=== PATIENT | male | born 1945 | race Caucasian/White ===

== ENCOUNTER 2017-11-15 06:48 | Observation (INO) | payer OTHER ==
[2017-11-15] VITALS (12 sets, daily range): BP systolic 105–1109; BP diastolic 60–75
--- NOTE | ~2017-11-15 | EKG ---
[address] [address] ELECTROCARDIOGRAM REPORT Name: DON PAULLAND Evelio Room #: [facility]#: [id number] Admission: 11/15/17 Attend Phys: Guero Michael MD Discharge: 11/16/17 Date of : 47 Report #: [id number] THIS REPORT FOR: //name// [facility] Test Date: 2017-11-16 Test Time: 09:14:11 Pat Name: CIRO PAUL Department: Room: [facility] Gender: M Director Auto: : 1945 Requested By: Guero Michael Order Number: [id number] MD: Guero Michael Measurements Intervals [place] Rate: 63 P: 50 UT: 209 QRS: -3 QRSD: 97 T: 22 QT: 413 QTc: 423 Interpretive Statements Sinus rhythm Compared to ECG 05/21/2016 06:58:33 No significant changes Electronically Signed On 11-16-2017 16:20:59 ACTUARIAL ASSOCIATE by Guero Michael [email or web address] <ELECTRONICALLY SIGNED> By: Guero Michael MD 11/16/17 1620 3 3 Guero Michael MD /VINNY
--- NOTE | ~2017-11-15 | D ---
[facility] [place] [address] DISCHARGE SUMMARY Name: CIRO PAUL Room #: 207-P [facility] Charles Osborne#: [id number] Admission: 11/15/17 Attend Phys: Guero Michael MD Discharge: 11/16/17 Date of : 47 Report #: [id number] THIS REPORT FOR: //name// CC: Justen Michael DATE OF SERVICE: 11/16/2017 PREOPERATIVE DIAGNOSIS: Atrial fibrillation. POSTOPERATIVE DIAGNOSIS: Atrial fibrillation. PROCEDURES PERFORMED: AFib ablation. HISTORY OF PRESENT ILLNESS: The patient is a 72-year-old status post prior AFib ablation back in 2016, who has been experiencing increased palpitations. He has an implantable loop recorder placed in the past few months and there have been noted increased episodes of atrial fibrillation. As such, I recommended that he undergo repeat ablation. The patient underwent successful repeat ablation. It was noted that the patient's veins were all isolated except the right superior pulmonary vein. This vein was re-isolated successfully. Adenosine was administered and showed persistence of isolation of the vein. There were no other arrhythmias noted. As such, the procedure was concluded. The patient did receive systemic protamine post ablation and this did result in transient hypotension that required some vasopressor medications. This resolved without incident. HOSPITAL COURSE: The patient was monitored overnight and did well. He was noted to have some low sats while sleeping. This morning, he was taken off oxygen, his oxygen saturations were okay, he was walking in the halls without any saturation issues. I performed a chest x-ray, which I visualized and showed no evidence of pulmonary edema, nor any infiltrates. An EKG was also performed showing normal sinus rhythm with no ischemic changes. On telemetry, he remained in sinus rhythm. On physical examination, his heart was regular rate and rhythm with no murmurs, rubs, gallops. His lungs were clear to auscultation bilaterally. His abdomen was soft, nontender. Bilateral groins showed no evidence of bruising or hematoma. He did have some facial swelling and it appears that he must have had an allergic reaction. I think that this is likely due to the protamine. However, he had no other allergic-like symptoms. As such, I recommended that he be discharged home today on his same medications. We will start him on flecainide 100 mg twice a day as well. We will also discharge him on a Medrol Dosepak for the facial swelling. [address] [address] DISCHARGE SUMMARY Name: CIRO PAUL Room #: 207-P [facility]#: [id number] Admission: 11/15/17 Attend Phys: Guero Michael MD Discharge: 11/16/17 Date of : 47 Report #: [id number] Discharge instructions were reviewed and he will follow up with me in 3 months. <ELECTRONICALLY SIGNED> By: Guero Michael MD 12/15/17 1753 1133 1144 Guero Michael MD /nt
--- NOTE | ~2017-11-15 | P ---
[facility] [place] [address] PROCEDURE REPORT Name: CIRO PAUL Room #: 207-P [facility] [place]#: [id number] Admission: 11/15/17 Attend Phys: Guero Michael MD Discharge: 11/16/17 Date of : 47 Report #: [id number] THIS REPORT FOR: //name// CC: Justen Michael DATE OF SERVICE: 11/15/2017 PROCEDURE PERFORMED: 1. Atrial fibrillation ablation, CPT code 28848. 2. 3D mapping, CPT code 59476. 3. Intracardiac echo, CPT code 31907. 4. Program stimulation and pacing after IV, CPT code 59326. HISTORY: The patient is a 72-year-old male with a history of AFib, status post ablation back in 2016, who has had clinical recurrence. This is documented on his implantable loop recorder. He is here for repeat ablation. ANESTHESIA: The patient underwent general anesthesia with no anesthesia-related complications. DESCRIPTION OF PROCEDURE: The patient underwent informed consent. We discussed the details of the procedure including the risks, which include but not limited to bleeding, vascular damage, cardiac perforation, stroke or CA. He understood these risks and is willing to proceed. As such, the patient was brought to the EP Laboratory in a fasting and sedated state and prepped and draped in a sterile fashion. Next, I injected lidocaine to the bilateral femoral regions and obtained access to the bilateral femoral veins x 4. I placed two 8-V[place] Citizen short sheaths in the right femoral vein and a 9-[place] Citizen and 7-[place] Citizen short sheaths in the left femoral vein using the modified Seldinger technique. Next, a decapolar catheter was placed easily in the coronary sinus and an ICE catheter was placed into the right atrium. Intracardiac ultrasound was used to localize the 4 pulmonary veins in the left atrial appendage. On intracardiac ultrasound, he had a nice thin septum. He does have a left superior pulmonary vein with a very high takeoff. He does have a right middle pulmonary vein that comes off the same ostium as the right inferior pulmonary vein. Next, the patient was systemically heparinized and using an SL1 sheath, a transseptal was performed using a EventTool needle. I then placed the Lasso catheter into the left atrium. A detailed 3D geometry of the left atrium was created and there was evidence of isolation of the left superior, left inferior and right inferior pulmonary veins. The right superior pulmonary vein demonstrated that it was reconnected at the superior and posterior aspect of the vessel. The right middle vein also appeared to be isolated. Next, I performed a second transseptal using an SL1 sheath and I was able to cross the original transseptal site using a guidewire and advanced my [address] [address] PROCEDURE REPORT Name: CIRO PAUL Room #: 207-P [facility] Charles Osborne#: [id number] Admission: 11/15/17 Attend Phys: Guero Michael MD Discharge: 11/16/17 Date of : 47 Report #: [id number] sheath into the left atrium. I took a SmartTouch ThermoCool ablation catheter into the left atrium. I then re-isolated the right superior pulmonary vein and this was straightforward. After isolation of the vein, I gave 6 of adenosine and there was a response with transient heart block noted. There was no evidence of reconnection of this pulmonary vein. Next, all veins were re-interrogated and they appeared to all be isolated. I verified that this right middle vein was also isolated. As such, I pulled the transseptal sheaths to the right atrium. Using intracardiac ultrasound, I verified that there was no pericardial effusion. Preablation, the patient was in sinus rhythm with a sinus cycle length of 1180 milliseconds, DC interval 240 milliseconds, QRS duration 97 milliseconds, QT interval 457 milliseconds. Post-ablation, the patient remained in sinus rhythm with sinus cycle length of 1170, DC interval 220, QRS duration 95 milliseconds, and QT interval 465 milliseconds. After conclusion of the procedure, the patient was given some protamine and had a hypotensive response. We therefore used our ultrasound probe in the EP Lab to rule out a pericardial effusion. There was no evidence of pericardial effusion. It appeared that there was a transient hypotensive response related to the protamine and this was discontinued. CONCLUSIONS: 1. Successful re-isolation of the right superior pulmonary vein. 2. Persistent isolation of the other pulmonary veins with evidence of entrance and exit block. <ELECTRONICALLY SIGNED> By: Guero Michael MD 12/15/17 1753 1101 190 Guero Michael MD /nt
[~2017-11-15 06:48] MED LIST: ACID CONTROL20 MG PO; ADVAIR 250-501 EACH INH; ASPIRIN EC81 M1 PO; ATORVASTATIN CA10 MG PO; CALCIUM CIT-VI1 EAC1 PO; FISH OIL 1,0001 EAC5 PO; FLECAINIDE ACET50 M1 PO; FLONASE 0.05%50 MCG NASAL; LIPITOR10 MG PO; MUCINEX600 MG PO; MULTIVITAMINS PO; NASONEX17 GM NS; PRADAXA150 MG PO; PROAIR HFA8.5 GM INH; TOPROL XL50 MG PO; VITAMIN D3400 UNI2 PO
[2017-11-15] MEDS ORDERED: BREO ELLIPTA 11 EACH INH (07:49)
[2017-11-15 07:54] LABS: HEMOGLOBIN 13.6 gm/dL (14.0-18.0); MCH 31.9 pg (26.0-34.0); PLATELET COUNT 168 thou/uL (150-400); RBC 4.26 mil/uL (4.50-6.00); RDW 13.1 % (10.5-14.5)
[2017-11-15 08:11] LABS: APTT 35.5 Seconds (24.5-32.8); INR 1.1; PROTIME 10.9 Seconds (9.3-11.4)
[2017-11-15 08:18] LABS: CREATININE 1.1 mg/dL (0.7-1.3); POTASSIUM 4.4 mmol/L (3.5-5.1)
[2017-11-15 08:35] LABS: ABSOLUTE NEUTROPHILS 2.6 thou/uL (1.4-8.2); ATYPICAL LYMPHS 1 %
[2017-11-15 08:36] LABS: ANISOCYTOSIS SLIGHT
[2017-11-16] VITALS (7 sets, daily range): BP systolic 103–137; BP diastolic 60–70
[2017-11-16] MEDS ORDERED: TAMBOCOR 100 M100 M1 PO (11:18)
== END 2017-11-16 13:06 | disposition home or self-care (01) ==
LOC: CATH 06:48 → 2N 12:55 → CATH 14:23 → 2N 11-16 13:06
PROVIDERS: Internal Medicine Cardiovascular Disease
DX: I48.0 Paroxysmal atrial fibrillation (principal); Z86.79 Personal history of other diseases of the circulatory system
CPT/HCPCS: 62110; 62900; 65020; 65040; 70005

== ENCOUNTER 2020-03-19 15:23 | Emergency (ER) | payer OTHER ==
[~2020-03-19] VITALS: Ht 180.3 cm; Wt 84.8 kg
[~2020-03-19 15:23] MED LIST changes: +BREO ELLIPTA 11 EACH INH; +TAMBOCOR 100 M100 M1 PO
[2020-03-19] MEDS ORDERED: ASA81BEC PO (15:35)
[2020-03-19 16:14] LABS: HEMATOCRIT 38.4 % (42.0-52.0); HEMOGLOBIN 13.4 gm/dL (14.0-18.0); MCH 32.8 pg (26.0-34.0); MCV 93.6 fL (80.0-100.0); PLATELET COUNT 186 thou/uL (150-400); RDW 13.6 % (10.5-14.5); WBC 7.8 thou/uL (4.0-11.0)
[2020-03-19 16:23] LABS: CALCIUM 8.8 mg/dL (8.5-10.1); CREATININE 1.1 mg/dL (0.7-1.3); POTASSIUM 3.9 mmol/L (3.5-5.1)
[2020-03-19 16:43] LABS: ABSOLUTE NEUTROPHILS 6.3 thou/uL (1.4-8.2); PLATELET ESTIMATE NORMAL
[2020-03-19 16:58] LABS: URINE BILIRUBIN NEGATIVE (Negative); URINE BLOOD 1+ (Negative); URINE CLARITY CLEAR; URINE COLOR YELLOW; URINE GLUCOSE-RANDOM* NEGATIVE (Negative); URINE KETONES NEGATIVE (Negative); URINE LEUKOCYTES-REFLEX NEGATIVE (Negative); URINE NITRITE-REFLEX NEGATIVE (Negative); URINE PROTEIN (DIPSTICK) TRACE (Negative); URINE SPECIFIC GRAVITY <= 1.005 (1.005-1.035); URINE UROBILINOGEN 0.2 E.U./dl (0.2-1.0)
[2020-03-19 17:05] LABS: CASTS None Seen /LPF (None Seen); SQUAMOUS None Seen /LPF (0-3); URINE RBC 0-2 Rare /HPF (0-2); URINE WBC-REFLEX None Seen /HPF (0-5)
[2020-03-19 17:06] LABS: BACTERIA-REFLEX 1-9 Few /HPF (None Seen); CRYSTALS None Seen /LPF (None Seen)
[2020-03-19] MEDS ORDERED: AMOXICILLIN 50500 MG PO (17:07)
[2020-03-19] MEDS ORDERED: ALBUTEROL2.5 MG/31 INH (17:18)
[2020-03-19 17:26] VITALS: BP 121/65
--- NOTE | 2020-03-21 11:45 | EKG ---
[facility] [place] [address] ELECTROCARDIOGRAM REPORT Name: CIRO PAUL Room #: DEP [facility]#: [id number] Admission: 03/19/20 Attend Phys: Discharge: 03/19/20 Date of : 47 Report #: [id number] THIS REPORT FOR: cc: Justen Lemus MD, Christopher B. MD Couchonnal, Luis F. MD ~ THIS REPORT FOR: //name// [facility] ED Test Date: 2020-03-19 Test Time: 15:54:38 Pat Name: CIRO PAUL Department: Room: Gender: Cook [place]: : 1945 Requested By: Basil Fair Order Number: [id number] MD: Guero Michael Measurements Intervals [place] Rate: 71 P: 59 [place]: 189 QRS: -16 QRSD: 94 T: 27 QT: 369 QTc: 401 Interpretive Statements Sinus rhythm Borderline left axis deviation Compared to ECG 11/16/2017 09:14:11 No significant changes Electronically Signed On 03-21-2020 11:44:51 CDT by Guero Michael [email or web address] <ELECTRONICALLY SIGNED> By: Guero Michael MD 03/21/20 1144 1554 1554 Guero Michael MD /EPI
== END 2020-03-19 17:13 | disposition home or self-care (01) ==
LOC: ER 15:23
PROVIDERS: Emergency Medicine
DX: J18.1 Lobar pneumonia, unspecified organism (principal); I48.91 Unspecified atrial fibrillation; Z88.1 Allergy status to other antibiotic agents; Z91.018 Allergy to other foods; Z79.82 Long term (current) use of aspirin; Z79.899 Other long term (current) drug therapy

== ENCOUNTER 2020-03-21 11:50 | Inpatient (IN) | payer OTHER ==
[2020-03-21] VITALS (9 sets, daily range): BP systolic 88–126; BP diastolic 57–63
[~2020-03-21] VITALS: Ht 180.3 cm; Wt 83.9 kg
[~2020-03-21 11:50] MED LIST changes: +ALBUTEROL2.5 MG/31 INH; +AMOXICILLIN 50500 MG PO; +ASA81BEC PO
[2020-03-21 12:55] LABS: HEMATOCRIT 37.3 % (42.0-52.0); HEMOGLOBIN 12.8 gm/dL (14.0-18.0); MCH 32.5 pg (26.0-34.0); MCHC 34.4 g/dL (28.0-37.0); MCV 94.3 fL (80.0-100.0); PLATELET COUNT 241 thou/uL (150-400); RBC 3.95 mil/uL (4.50-6.00); RDW 14.1 % (10.5-14.5); WBC 9.9 thou/uL (4.0-11.0)
[2020-03-21 12:57] LABS: CALCIUM 8.6 mg/dL (8.5-10.1); CREATININE 1.2 mg/dL (0.7-1.3); POTASSIUM 3.9 mmol/L (3.5-5.1)
[2020-03-21 13:03] LABS: ALBUMIN 2.5 g/dL (3.4-5.0); TOTAL BILIRUBIN 0.6 mg/dL (0.2-1.0); TOTAL PROTEIN 6.4 g/dL (6.4-8.2)
[2020-03-21 13:09] LABS: ABSOLUTE NEUTROPHILS 7.6 thou/uL (1.4-8.2); ATYPICAL LYMPHS 2 %
[2020-03-22] VITALS (13 sets, daily range): BP systolic 90–145; BP diastolic 42–80
[2020-03-22 05:10] LABS: HEMATOCRIT 35.2 % (42.0-52.0); HEMOGLOBIN 11.8 gm/dL (14.0-18.0); MCH 32.3 pg (26.0-34.0); MCHC 33.6 g/dL (28.0-37.0); RBC 3.67 mil/uL (4.50-6.00); RDW 14.4 % (10.5-14.5); WBC 6.7 thou/uL (4.0-11.0)
[2020-03-22 05:41] LABS: CALCIUM 8.4 mg/dL (8.5-10.1); CREATININE 1.2 mg/dL (0.7-1.3)
--- NOTE | 2020-03-22 11:01 | EKG ---
[facility] [place] [address] ELECTROCARDIOGRAM REPORT Name: CIRO PAUL Room #: 239-P ADM IN M.R.#: [id number] Admission: 03/21/20 Attend Phys: Travon Galarza MD Discharge: Date of : 47 Report #: [id number] THIS REPORT FOR: cc: Justen Lemus MD, Christopher B. MD Couchonnal, Luis F. 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
--- NOTE | 2020-03-22 11:04 | EKG ---
[facility] [place] [address] ELECTROCARDIOGRAM REPORT Name: CIRO PAUL Room #: 239-P ADM IN M.R.#: [id number] Admission: 03/21/20 Attend Phys: Travon Galarza MD Discharge: Date of : 47 Report #: [id number] THIS REPORT FOR: cc: Justen Lemus MD, Christopher B. MD Couchonnal, Luis F. MD ~ THIS REPORT FOR: //name// [facility] Test Date: 2020-03-22 Test Time: 08:10:41 Pat Name: CIRO PAUL Department: Room: 239 P Gender: M [facility] 1945 Requested By: Travon Galarza Order Number: [id number] MD: Guero Michael Measurements Intervals [place] Rate: 64 P: 39 [place]: 206 QRS: -1 QRSD: 94 T: 6 QT: 361 QTc: 373 Interpretive Statements Sinus rhythm Ventricular premature complex Compared to ECG 03/19/2020 15:54:38 Ventricular premature complex(es) now present Electronically Signed On 03-22-2020 11:03:23 CDT by Guero Michael [email or web address] <ELECTRONICALLY SIGNED> By: Guero Michael MD 03/22/20 1103 Guero Michael MD /EPI
[2020-03-23 04:45] VITALS: BP 127/70
[2020-03-23 04:50] LABS: HEMATOCRIT 33.4 % (42.0-52.0); HEMOGLOBIN 11.5 gm/dL (14.0-18.0); MCH 32.6 pg (26.0-34.0); MCHC 34.3 g/dL (28.0-37.0); MCV 94.9 fL (80.0-100.0); RBC 3.52 mil/uL (4.50-6.00); RDW 14.4 % (10.5-14.5); WBC 7.2 thou/uL (4.0-11.0)
[2020-03-23 05:28] LABS: CALCIUM 8.1 mg/dL (8.5-10.1)
[2020-03-23 05:32] LABS: POTASSIUM 3.9 mmol/L (3.5-5.1)
[2020-03-23 09:00] VITALS: BP 124/75
[2020-03-23 12:00] VITALS: BP 116/63
[2020-03-23 17:00] VITALS: BP 132/71
[2020-03-24 05:41] LABS: CALCIUM 8.4 mg/dL (8.5-10.1); POTASSIUM 3.8 mmol/L (3.5-5.1)
[2020-03-24 05:48] VITALS: BP 144/76
[2020-03-24 05:48] LABS: HEMATOCRIT 33.8 % (42.0-52.0); HEMOGLOBIN 11.5 gm/dL (14.0-18.0); MCH 32.7 pg (26.0-34.0); MCHC 34.2 g/dL (28.0-37.0); MCV 95.8 fL (80.0-100.0); RBC 3.52 mil/uL (4.50-6.00); RDW 14.3 % (10.5-14.5); WBC 5.6 thou/uL (4.0-11.0)
[2020-03-24 06:59] VITALS: BP 148/67
[2020-03-24 08:30] VITALS: BP 128/81
[2020-03-24 12:00] VITALS: BP 119/70
[2020-03-24 16:15] VITALS: BP 147/88
[2020-03-24 19:19] VITALS: BP 140/80
[2020-03-25 03:46] VITALS: BP 134/87
[2020-03-25 05:44] LABS: HEMATOCRIT 35.8 % (42.0-52.0); HEMOGLOBIN 12.1 gm/dL (14.0-18.0); MCH 32.2 pg (26.0-34.0); MCHC 33.9 g/dL (28.0-37.0); MCV 95.1 fL (80.0-100.0); RBC 3.77 mil/uL (4.50-6.00); RDW 14.2 % (10.5-14.5); WBC 3.7 thou/uL (4.0-11.0)
[2020-03-25 06:02] LABS: CALCIUM 9.1 mg/dL (8.5-10.1); POTASSIUM 4.2 mmol/L (3.5-5.1)
[2020-03-25 08:06] VITALS: BP 141/84
[2020-03-25 11:30] VITALS: BP 125/74
[2020-03-25 15:43] VITALS: BP 131/83
[2020-03-25 20:20] VITALS: BP 132/86
[2020-03-26 05:20] VITALS: BP 118/73
[2020-03-26 08:09] VITALS: BP 123/75
[2020-03-26] MEDS ORDERED: PREDNISONE 10 M10 MG PO (14:01)
[2020-03-26] MEDS ORDERED: CEFPODOXIME PR200 M1 PO (14:03)
[2020-03-26 14:16] VITALS: BP 123/75
== END 2020-03-26 14:39 | disposition home or self-care (01) | DRG 871 ==
LOC: ER 11:50 → 2N 14:10 → EROBS 14:10 → ICU 15:20 → 2N 03-22 16:20 → 3W 03-23 20:17
PROVIDERS: Physician Assistant; ADMIT Hospitalist; ATTEND Hospitalist
DX: A41.9 Sepsis, unspecified organism (principal); J18.9 Pneumonia, unspecified organism; J96.01 Acute respiratory failure with hypoxia; I48.91 Unspecified atrial fibrillation; J45.909 Unspecified asthma, uncomplicated; E78.5 Hyperlipidemia, unspecified; G47.00 Insomnia, unspecified; N40.0 Benign prostatic hyperplasia without lower urinary tract symptoms; M81.0 Age-related osteoporosis without current pathological fracture; K21.9 Gastro-esophageal reflux disease without esophagitis; R53.81 Other malaise; Z79.01 Long term (current) use of anticoagulants; Z88.8 Allergy status to other drugs, medicaments and biological substances; Z88.1 Allergy status to other antibiotic agents; Z91.02 Food additives allergy status; Z03.818 Encounter for observation for suspected exposure to other biological agents ruled out; Z79.82 Long term (current) use of aspirin; Z79.899 Other long term (current) drug therapy; Z91.19 Patient's noncompliance with other medical treatment and regimen
CPT/HCPCS: 10081; 10204; 10879

== ENCOUNTER → 2020-05-05 | Outpatient (CLI) | payer OTHER ==
[~2020-05-05] MED LIST changes: +CEFPODOXIME PR200 M1 PO; +PREDNISONE 10 M10 MG PO
== END ==
LOC: SJCVC 09:19
PROVIDERS: ATTEND Internal Medicine Cardiovascular Disease
DX: I44.0 Atrioventricular block, first degree (principal); I48.0 Paroxysmal atrial fibrillation; E78.00 Pure hypercholesterolemia, unspecified; E78.5 Hyperlipidemia, unspecified; J45.909 Unspecified asthma, uncomplicated; Z82.49 Family history of ischemic heart disease and other diseases of the circulatory system; Z79.899 Other long term (current) drug therapy

== ENCOUNTER → 2020-05-05 | Outpatient (CLI) | payer OTHER | LOC: CAT 08:30 | PROVIDERS: ATTEND Pediatrics | DX: J13 Pneumonia due to Streptococcus pneumoniae (principal); J90 Pleural effusion, not elsewhere classified ==

== ENCOUNTER → 2020-05-12 | Outpatient (CLI) | payer OTHER | LOC: SJCVCIMAG 07:19 | PROVIDERS: ATTEND Internal Medicine Cardiovascular Disease | DX: I44.0 Atrioventricular block, first degree (principal); I48.91 Unspecified atrial fibrillation; I25.10 Atherosclerotic heart disease of native coronary artery without angina pectoris; Z79.82 Long term (current) use of aspirin; Z79.899 Other long term (current) drug therapy; Z88.8 Allergy status to other drugs, medicaments and biological substances ==

== ENCOUNTER → 2021-05-05 | Outpatient (CLI) | payer OTHER | LOC: SJCVC 12:54 | PROVIDERS: ATTEND Internal Medicine Cardiovascular Disease | DX: R94.31 Abnormal electrocardiogram [ECG] [EKG] (principal); I45.10 Unspecified right bundle-branch block; I44.0 Atrioventricular block, first degree; I49.9 Cardiac arrhythmia, unspecified; I48.91 Unspecified atrial fibrillation; I25.10 Atherosclerotic heart disease of native coronary artery without angina pectoris; E78.2 Mixed hyperlipidemia; E78.5 Hyperlipidemia, unspecified; J45.909 Unspecified asthma, uncomplicated; Z88.8 Allergy status to other drugs, medicaments and biological substances; Z98.890 Other specified postprocedural states; Z79.82 Long term (current) use of aspirin; Z79.899 Other long term (current) drug therapy; Z82.49 Family history of ischemic heart disease and other diseases of the circulatory system ==

== ENCOUNTER → 2021-06-01 | Outpatient (CLI) | payer OTHER ==
--- NOTE | ~2021-06-01 | P ---
[facility] [place] [address] PROCEDURE REPORT Name: CIRO PAUL [id number] Admission: 06/01/21 Attend Phys: Guero Michael MD Discharge: Date of : 47 Report #: [id number] THIS REPORT FOR: cc: Justen Lemus MD, Christopher B. MD Couchonnal,Guero Rodriguez MD ~ DATE OF SERVICE: 06/01/2021 IMPLANTABLE LOOP RECORDER REMOVAL AND REINSERTION HISTORY: The patient is a gentleman with implantable loop recorder whose battery is at the replacement interval. He is here for removal and placement of a new device. DESCRIPTION OF PROCEDURE: The patient underwent informed consent. He was then prepped and draped in a standard fashion. I injected lidocaine at the prior incision site. The old device was removed. The new one was injected, tested and found to be functioning normally and a single suture was performed. Some surgical glue was placed over the incision and a dressing was placed. There were no procedural-related complications. The newly implanted device was a Jingdong model number [id number], serial number [id number]. CONCLUSION: Successful removal and reimplantation of an implantable loop recorder. By: 0955 1108 Guero Michael MD /nt
[2021-06-01 08:33] VITALS: BP 141/72
== END | disposition home or self-care (01) ==
LOC: CATH 06:59
PROVIDERS: ATTEND Internal Medicine Cardiovascular Disease
DX: I48.91 Unspecified atrial fibrillation (principal); Z79.899 Other long term (current) drug therapy; Z79.82 Long term (current) use of aspirin; Z88.8 Allergy status to other drugs, medicaments and biological substances; Z79.01 Long term (current) use of anticoagulants

== ENCOUNTER 2021-08-14 11:39 | Emergency (ER) | payer OTHER ==
[~2021-08-14] VITALS: Ht 180.3 cm; Wt 82.6 kg
[2021-08-14 12:27] LABS: ABSOLUTE NEUTROPHILS 3.9 thou/uL (1.4-8.2); BASOPHILS 0.4 % (0.0-2.0); EOSINOPHILS 2.3 % (0.0-3.0); HEMATOCRIT 42.9 % (42.0-52.0); HEMOGLOBIN 14.8 gm/dL (14.0-18.0); LYMPHOCYTES 13.5 % (24.0-44.0); MCH 32.8 pg (26.0-34.0); MCHC 34.6 g/dL (28.0-37.0); MCV 94.9 fL (80.0-100.0); PLATELET COUNT 178 thou/uL (150-400); POLYS 71.8 % (36.0-66.0); RBC 4.52 mil/uL (4.50-6.00); RDW 13.3 % (10.5-14.5); WBC 5.5 thou/uL (4.0-11.0)
[2021-08-14 12:30] LABS: CALCIUM 8.9 mg/dL (8.5-10.1); CREATININE 1.1 mg/dL (0.7-1.3); POTASSIUM 4.1 mmol/L (3.5-5.1)
[2021-08-14 12:36] LABS: ALBUMIN 3.8 g/dL (3.4-5.0); TOTAL BILIRUBIN 0.6 mg/dL (0.2-1.0); TOTAL PROTEIN 6.9 g/dL (6.4-8.2)
[2021-08-14] MEDS ORDERED: MIRALAX119 GM PO (14:32)
[2021-08-14] MEDS ORDERED: HYDROCORTISONE30 G9 RECTAL (14:34)
[2021-08-14 14:35] LABS: URINE BILIRUBIN NEGATIVE (Negative); URINE BLOOD NEGATIVE (Negative); URINE CLARITY CLEAR; URINE COLOR YELLOW; URINE GLUCOSE-RANDOM* NEGATIVE (Negative); URINE KETONES NEGATIVE (Negative); URINE LEUKOCYTES-REFLEX NEGATIVE (Negative); URINE NITRITE-REFLEX NEGATIVE (Negative); URINE PROTEIN (DIPSTICK) NEGATIVE (Negative); URINE UROBILINOGEN 0.2 E.U./dl (0.2-1.0)
[2021-08-14 14:46] VITALS: BP 159/76
== END 2021-08-14 14:47 | disposition home or self-care (01) ==
LOC: ER 11:39
PROVIDERS: Emergency Medicine
DX: K59.00 Constipation, unspecified (principal); K60.2 Anal fissure, unspecified; J45.909 Unspecified asthma, uncomplicated; I48.91 Unspecified atrial fibrillation; Z98.890 Other specified postprocedural states; Z79.899 Other long term (current) drug therapy; Z79.891 Long term (current) use of opiate analgesic; Z79.82 Long term (current) use of aspirin; Z79.1 Long term (current) use of non-steroidal anti-inflammatories (NSAID); Z88.1 Allergy status to other antibiotic agents; Z88.8 Allergy status to other drugs, medicaments and biological substances; Z88.6 Allergy status to analgesic agent; Z91.018 Allergy to other foods

== ENCOUNTER → 2021-08-31 | Outpatient (CLI) | payer OTHER ==
[~2021-08-31] MED LIST changes: +HYDROCORTISONE30 G9 RECTAL; +MIRALAX119 GM PO
== END ==
LOC: SJCVC 10:52
PROVIDERS: ATTEND Internal Medicine Cardiovascular Disease
DX: R94.31 Abnormal electrocardiogram [ECG] [EKG] (principal); I44.0 Atrioventricular block, first degree; I48.0 Paroxysmal atrial fibrillation; I25.10 Atherosclerotic heart disease of native coronary artery without angina pectoris; E78.5 Hyperlipidemia, unspecified; J45.909 Unspecified asthma, uncomplicated; Z88.1 Allergy status to other antibiotic agents; Z88.8 Allergy status to other drugs, medicaments and biological substances; Z79.82 Long term (current) use of aspirin; Z79.899 Other long term (current) drug therapy; Z98.890 Other specified postprocedural states